=== PATIENT | male | born 1975 | race Caucasian/White ===

== ENCOUNTER 2018-01-26 11:56 | Emergency (ER) | payer SELFPAY ==
[2018-01-26 12:20] VITALS: BP 133/93; PULSE 67; TEMP 98.6; BMI 28.3
[2018-01-26] MEDS ORDERED: DIPHTH,PERTUSS(ACELL),TET 0.5 ML DISP.SYRIN IM ONE (12:46)
[2018-01-26] MEDS ORDERED: LIDOCAINE HCL 1%, 10 MG/ML (50 mL VIAL) SQ ONE (12:54)
[2018-01-26] MEDS ORDERED: LIDOCAINE HCL 1%, 10 MG/ML (20ML VIAL) ONE (12:57)
--- NOTE | 2018-01-26 13:27 | PDOC ---
History of Present Illness - General Chief Complaint: Laceration Stated Complaint: LACERATION Time Seen by Provider: 01/26/18 12:41 - History of Present Illness Initial Comments: 42-year-old male current on tetanus presents for evaluation of a laceration of his right fourth and fifth fingers. Was working with gardening tools and accidentally cut his fingers while the motor started of the gas powered cutters. He has no comorbidities. 01/26/18 13:23 Past History - Past Medical History Allergies/Adverse Reactions: Allergies Allergy/AdvReac Type Severity Reaction Status Date / Time No Known Allergies Allergy Verified 01/26/18 12:17 Home Medications: Ambulatory Orders NK [No Known Home Medication] 01/26/18 - Suicide/Smoking/Psychosocial Hx Smoking History: Never smoked Review of Systems - Review of Systems Musculoskeletal: Yes: See HPI All Other Systems: Reviewed and Negative *Physical Exam - Vital Signs Last Vital Signs Temp Pulse Resp BP Pulse Ox 98.6 F 67 18 133/93 100 01/26/18 12:17 01/26/18 12:17 01/26/18 12:17 01/26/18 12:17 01/26/18 12:17 - Physical Exam Comments: There is a U-shaped wound on the volar aspect of the right fourth finger overlying the skin of the middle phalanx FDS and FDP are working independently. There is a small subcentimeter L-shaped wound on the skin overlying the distal phalanx at the ulnar aspect of the right fifth finger. FDS and FDP work independently. There are no gross sensorimotor deficits. 01/26/18 13:25 Medical Decision Making - Medical Decision Making Digital blocks were done on the right fourth and fifth fingers aseptically. This was tolerated well both wounds were copiously irrigated with normal saline. Both wounds were explored to their bases in a bloodless field and there was no foreign body identified. The wound on the right fourth finger was closed with 6 simple interrupted nylon sutures The wound on the right fifth finger was closed with 4 simple interrupted nylon sutures. Dry sterile dressing was placed and the procedure was tolerated well. Tetanus was updated. 01/26/18 13:27 *DC/Admit/Observation/Transfer Diagnosis at time of Disposition: Laceration of finger - Discharge Dispostion Disposition: HOME Condition at time of disposition: Stable Decision to Admit order: No - Referrals Referrals: Chris Villagran MD [Staff Physician] - - Patient Instructions Printed Discharge Instructions: DI for Laceration Repair Additional Instructions: Please follow-up with hand surgery next 2-3 days for the further evaluation and treatment options. Return to the emergency room symptoms such as redness swelling drainage or increasing pain over the lacerations occurred. Sutures should be removed in 10 days. Ear hand surgery or emergency room may remove the sutures. - Post Discharge Activity
== END 2018-01-26 13:37 | disposition home or self-care (01) ==
LOC: JERFT 11:56
PROC: 0HQFXZZ Repair Right Hand Skin, External Approach (ICD-10-PCS; principal; 2018-01-26)
PROC: 3E0234Z Introduction of Serum, Toxoid and Vaccine into Muscle, Percutaneous Approach (ICD-10-PCS; 2018-01-26)
DX: S61.214A Laceration without foreign body of right ring finger without damage to nail, initial encounter (principal); S61.216A Laceration without foreign body of right little finger without damage to nail, initial encounter; W29.3XXA Contact with powered garden and outdoor hand tools and machinery, initial encounter; Y93.H2 Activity, gardening and landscaping; Y92.89 Other specified places as the place of occurrence of the external cause; Y99.8 Other external cause status
CPT/HCPCS: 90715; 99281-25

== ENCOUNTER 2018-02-05 11:30 | Emergency (ER) | payer SELFPAY ==
[2018-02-05 11:44] VITALS: BP 126/77; PULSE 70; TEMP 98; BMI 26.6
--- NOTE | 2018-02-05 12:38 | PDOC ---
Suture Removal/Wound Check HPI - History of Present Illness Stated Complaint: REVISIT-REMOVAL OF STITCHES Time Seen by Provider: 02/05/18 11:56 History Source: Yes: Patient Treated at: [facility] Date of Last ED visit: 01/26/18 - Previous ED Treatment Type of procedure performed on last visit: Yes: Laceration Repair Past History - Past Medical History Allergies/Adverse Reactions: Allergies Allergy/AdvReac Type Severity Reaction Status Date / Time No Known Allergies Allergy Verified 02/05/18 11:41 Home Medications: Ambulatory Orders NK [No Known Home Medication] 01/26/18 COPD: No - Immunization History Immunization Up to Date: Yes - Suicide/Smoking/Psychosocial Hx Smoking History: Never smoked Have you smoked in the past 12 months: No Information on smoking cessation initiated: No Hx Alcohol Use: No Drug/Substance Use Hx: No Substance Use Type: None *Review of Systems - Review of Systems Constitutional: No: Chills, Fever Integumentary: Yes: Erythema *Physical Exam - Vital Signs Last Vital Signs Temp Pulse Resp BP Pulse Ox 98.0 F 70 18 126/77 96 02/05/18 11:42 02/05/18 11:42 02/05/18 11:42 02/05/18 11:42 02/05/18 11:42 - Physical Exam General Appearance: Yes: Appropriately Dressed. No: Apparent Distress HEENT: positive: Normal Voice Neck: positive: Supple Respiratory/Chest: negative: Respiratory Distress Integumentary: positive: Dry, Warm, Other (well healing wounds to R 4th and 5th digits, no e/o infection) Neurologic: positive: Fully Oriented, Alert, Normal Mood/Affect Medical Decision Making - Medical Decision Making 02/05/18 12:33 42 yo M, no sig hx, here for suture removal to R 4th and 5th digits, Sutured 10 days ago. No pain, redness, f/c. 10 sutures removed without complications *DC/Admit/Observation/Transfer Diagnosis at time of Disposition: Visit for suture removal - Discharge Dispostion Disposition: HOME Condition at time of disposition: Good - Referrals - Patient Instructions Printed Discharge Instructions: DI for Suture Removal - Post Discharge Activity
== END 2018-02-05 12:43 | disposition home or self-care (01) ==
LOC: JERFT 11:30
DX: Z48.02 Encounter for removal of sutures (principal)
CPT/HCPCS: 99281-25

== ENCOUNTER 2022-01-10 09:36 | Emergency (ER) | payer SELFPAY ==
[2022-01-10 09:46] VITALS: BP 117/77; TEMP 98.9; BMI 27.4
[2022-01-10] MEDS ORDERED: SODIUM CHLORIDE 0.9% 500 ML INFUS.BAG IV ONE (10:36)
[2022-01-10] MEDS ORDERED: DIPHTH,PERTUSS(ACELL),TET 0.5 ML DISP.SYRIN IM ONE ×2 (10:36→10:57)
[2022-01-10 11:25] VITALS: PULSE 100
== END 2022-01-10 11:29 | disposition home or self-care (01) ==
LOC: JER 09:36
PROC: 0HQ1XZZ Repair Face Skin, External Approach (ICD-10-PCS; principal; 2022-01-10)
PROC: 3E0234Z Introduction of Serum, Toxoid and Vaccine into Muscle, Percutaneous Approach (ICD-10-PCS; 2022-01-10)
DX: S01.81XA Laceration without foreign body of other part of head, initial encounter (principal); W22.8XXA Striking against or struck by other objects, initial encounter
CPT/HCPCS: 90715; 99284-25

== ENCOUNTER 2022-01-23 13:12 | Emergency (ER) | payer SELFPAY ==
[2022-01-23 14:26] VITALS: BP 121/78; PULSE 71; TEMP 98.2; BMI 24.1
== END 2022-01-23 14:27 | disposition home or self-care (01) ==
LOC: JER 13:12
DX: Z48.02 Encounter for removal of sutures (principal)
CPT/HCPCS: 99281-25